=== PATIENT | male | born 1945 | race Caucasian/White ===

== ENCOUNTER 2016-06-19 13:51 | Outpatient (CLI) | payer OTHER ==
[~2016-06-19] VITALS: Ht 172.7 cm; Wt 85.3 kg
[2016-06-19 14:47] LABS: HEMOGLOBIN 7.4 gm/dl (14.0-17.5)
== END 2016-06-19 23:10 | disposition home or self-care (01) ==
LOC: OPSV 13:51
DX: C83.30 Diffuse large B-cell lymphoma, unspecified site (principal)
CPT/HCPCS: 36430; 36592; 85014; 85018; 85049; 86850; 86900; 86901; 86920; J7050; P9037; P9040; Q0163

== ENCOUNTER → 2016-06-23 | Outpatient (CLI) | payer OTHER ==
[~2016-06-23] VITALS: Ht 172.7 cm; Wt 85.3 kg
[2016-06-23 12:18] LABS: HEMOGLOBIN 7.4 gm/dl (14.0-17.5)
== END ==
LOC: OPSV 11:59
PROVIDERS: Internal Medicine Hematology & Oncology
DX: C83.30 Diffuse large B-cell lymphoma, unspecified site (principal)
CPT/HCPCS: 36430; 36592; 85014; 85018; 85049; 86900; 86901; J7050; P9037; Q0163

== ENCOUNTER → 2016-08-11 | Outpatient (CLI) | payer OTHER ==
[2016-08-11 09:44] LABS: HEMOGLOBIN 8.2 gm/dl (14.0-17.5)
== END ==
LOC: OPSV 08:00
PROVIDERS: Internal Medicine Hematology & Oncology
DX: C83.30 Diffuse large B-cell lymphoma, unspecified site (principal)
CPT/HCPCS: 36430; 36592; 85014; 85018; 85049; 86850; 86900; 86901; 86920; J7050; P9040; Q0163

== ENCOUNTER → 2016-08-14 | Outpatient (CLI) | payer OTHER ==
[~2016-08-14] VITALS: Ht 172.7 cm; Wt 85.7 kg
[2016-08-14 15:27] LABS: HEMOGLOBIN 9.7 gm/dl (14.0-17.5)
== END ==
LOC: OPSV 13:31
PROVIDERS: Internal Medicine Hematology & Oncology
DX: D64.9 Anemia, unspecified (principal)
CPT/HCPCS: 36430; 36592; 85014; 85018; 85049; 86900; 86901; J7050; P9037; Q0163